=== PATIENT | male | born 1970 | race Two or more races ===

== ENCOUNTER 2019-10-14 21:01 | Inpatient (IN) | payer MEDICAID, OTHER ==
[~2019-10-14] VITALS: Ht 170.2 cm; Wt 65.6 kg
--- NOTE | 2019-10-14 21:55 | NUR ---
PT RESTING IN [facility] AT THIS TIME; NADN. PT ATTACHED TO VS MACHINES. VSS. YVON KAM AT FOR PT HISTORY AND ASSESSMENT.
--- NOTE | 2019-10-14 22:04 | NUR ---
--PT. SISTER NATALIE; CALL IF PT. D/C FOR RIDE HOME.
--- NOTE | 2019-10-14 22:09 | NUR ---
IV ACCESS ESTABLISHED. PT MEDICATED PER MAR AT THIS TIME.
[2019-10-14 22:14] LABS: BASOPHILS # (AUTO) 0.12 x10^3/uL (0-0.1); BASOPHILS % (AUTO) 1 % (0-1); EOSINOPHILS # (AUTO) 0.07 x10^3/uL (0-0.4); EOSINOPHILS % (AUTO) 1 % (1-7); LYMPHOCYTES # (AUTO) 1.34 x10^3/uL (1-3.4); LYMPHOCYTES % (AUTO) 12 % (22-44); MD NO; MEAN CORPUSCULAR HEMOGLOBIN 27.1 pg (27.5-34.5); MEAN CORPUSCULAR HGB CONC 32.7 g/dL (33.2-36.2); MEAN CORPUSCULAR VOLUME 82.9 fL (81-97); MEAN PLATELET VOLUME 9.2 fL (7.4-10.4); MONOCYTES % (AUTO) 10 % (2-9); NEUTROPHILS # (AUTO) 8.94 x10^3/uL (1.8-6.8); NEUTROPHILS % (AUTO) 77 % (42-75); PLATELET COUNT 395 x10^3/uL (130-400); RED BLOOD COUNT 5.56 x10^6/uL (4.38-5.82)
[2019-10-14] MEDS ORDERED: MORPHINE SULFATE 4 MG/ML, 1ML ONE (22:20)
[2019-10-14] MEDS ORDERED: ONDANSETRON 2MG/ML, 2ML ONE (22:20)
[2019-10-14 22:28] LABS: ALANINE AMINOTRANSFERASE 30 U/L (12-78); ALBUMIN 3.1 g/dL (3.4-5.0); ANION GAP 10 mmol/L (5-15); CALCIUM 8.9 mg/dL (8.5-10.1); CHLORIDE 98 mmol/L (98-107); CREATININE 0.75 mg/dL (0.7-1.3)
--- NOTE | 2019-10-14 22:28 | NUR ---
PT MEDICATED PER MAR.
[2019-10-14 22:30] LABS: ALKALINE PHOSPHATASE 150 U/L (45-117); BILIRUBIN,TOTAL 0.4 mg/dL (0.2-1.0); TOTAL PROTEIN 7.2 g/dL (6.4-8.2)
[2019-10-14] MEDS ORDERED: ONDANSETRON 2MG/ML, 2ML IVPush ONE (22:30)
[2019-10-14] MEDS ORDERED: MORPHINE SULFATE 4 MG/ML, 1ML IVPush PRN (22:30)
[2019-10-14] MEDS ORDERED: SODIUM CHLORIDE FLUSH 10ML SYR IVF ONE (22:30)
[2019-10-14] MEDS ORDERED: SODIUM CHLORIDE 0.9% 1,000ML IVBOLUS ONE ×2 (22:30→23:30)
--- NOTE | 2019-10-14 23:10 | NUR ---
optical fabrication technicianbalbir Kraft assisted in triage and other procedures
--- NOTE | 2019-10-14 23:25 | NUR ---
PT TO CT VIA [facility] AT THIS TIME.
[2019-10-14 23:39] LABS: MICROSCOPIC AUTO
[2019-10-14 23:44] LABS: INTERNATIONAL NORMALIZED RATIO 1.13 (0.93-1.1)
[2019-10-14 23:46] LABS: T4 (THYROXINE) 10.9 mcg/dL (4.5-12.1)
[2019-10-14 23:48] LABS: CULTURE INDICATED? NO
[2019-10-14] MEDS ORDERED: OMNIPAQUE 350 MG/ML, 100ML BOTTLE ONE (23:51)
[2019-10-14 23:52] LABS: TROPONIN I < 0.015 ng/mL (0.000-0.045)
[2019-10-15] MEDS ORDERED: LIDOCAINE 1%-EPI 1:100K, 20ML ONE (00:02)
--- NOTE | 2019-10-15 01:34 | NUR ---
CONSENT OBTAINED FROM PT WITH INA BAER TO INTERPRET. PT VERBALIZES UNDERSTANDING OF PROCEDURE WITH THIS RN TO WITNESS. DR BROWN AT BS. PT RIGHT THROAX DRAINED OF APPROXIMATELY 3500 ML OF FLUID. REPEAT XRAY TO BE OBTAINED. PT TOLERATED PROCEDURE WELL AND VERBALIZES ABILITY TO BREATHE EASIER. VSS AT THIS TIME.
--- NOTE | 2019-10-15 01:42 | NUR ---
RECEIVED REPORT FROM GIDEON HIRSCH TO ASSUME CARE OF PT. AT THIS TIME. THORACENTESIS WAS COMPLETED, PER GIDEON HIRSCH 3,500ML OF FLUID WAS REMOVED FROM RIGHT LUNG. PT. RESTING ON GURNEY. ALL MONITORS IN PLACE. ALL SAFETY MEASURES OBSERVED.
--- NOTE | 2019-10-15 01:48 | NUR ---
technical business systems analyst Ezequiel assisted in room with procedure.
--- NOTE | 2019-10-15 02:12 | NUR ---
X-RAY AT FOR REPEAT CHEST X-RAY.
[2019-10-15] MEDS ORDERED: CEFTRIAXONE PMX 1GM/50ML 50 ML IV ONE (03:30)
[2019-10-15] MEDS ORDERED: AZITHROMYCIN 500 MG in SODIUM CHLORIDE 0.9% 250 ML IV ONE (03:30)
[2019-10-15] MEDS ORDERED: CEFTRIAXONE PMX 1GM/50ML 50 ML ONE (03:38)
[2019-10-15] MEDS: CEFTRIAXONE PMX 1GM/50ML 50 ML IVPB SCH (03:43)
--- NOTE | 2019-10-15 03:49 | NUR ---
PT. REPORTS NO PAIN. STATES HE FEELS HE CAN BREATH BETTER AFTER PROCEDURE. 2 SETS OF BLOOD CULTURES WERE DRAWN EARLIER. IV ABX HUNG PER ORDER. DR. HUNTER IN TO EVAL PT. AND DISCUSS POC AT THIS TIME.
[2019-10-15] MEDS ORDERED: DOCUSATE 100 MG CAPSULE PO PRN (04:00)
[2019-10-15] MEDS ORDERED: PHARMACY MAY ADJ FOR RENAL FX MC PRN (04:00)
[2019-10-15] MEDS ORDERED: ONDANSETRON 2MG/ML, 2ML IVPush PRN (04:00)
[2019-10-15] MEDS: AZITHROMYCIN 500 MG in SODIUM CHLORIDE 0.9% 250 ML IV SCH (04:28)
--- NOTE | 2019-10-15 07:07 | NUR ---
REPORT TO GIDEON TAVARES.
--- NOTE | 2019-10-15 07:38 | NUR ---
REPORT RECEIVED FROM GIDEON GUTIERREZ. ASSUMING PRIMARY CARE OF PT.
--- NOTE | 2019-10-15 08:03 | NUR ---
RN OBTAINED AM VS. VSS. PT AWAKE AND ALERT. DENIES ANY PAIN OR DISCOMFORT AT THIS TIME. AWAITING BREAKFAST AND BED ASSIGNMENT. RN TO CONTINUE TO MONITOR.
--- NOTE | 2019-10-15 08:04 | NUR ---
BREAKFAST DELIVERED TO PT.
--- NOTE | 2019-10-15 09:46 | NUR ---
PT MOVED TO HOSPITAL BED.
--- NOTE | 2019-10-15 12:13 | NUR ---
LUNCH DELIVERED TO PT. PT ON PHONE TALKING TO FAMILY MEMBERS WITH [facility]. NO NEEDS AT THIS TIME. RN TO CONTINUE TO MONITOR. REPORT TO BREAK GIDEON TORO.
--- NOTE | 2019-10-15 14:11 | NUR ---
PT LYING QUITELY ON HOSPITAL BED. DENIES ANY PAIN OR DISCOMFORT AT THIS TIME. VSS. RN TO CONTINUE TO MONITOR.
--- NOTE | 2019-10-15 17:09 | NUR ---
DINNER DELIVERED TO PT.
--- NOTE | 2019-10-15 17:43 | NUR ---
RN INFORMED MD BONILLA THAT PT'S COVID TEST WAS NOT DETECTED.
--- NOTE | 2019-10-15 17:57 | NUR ---
FIRST ATTEMPT ON GOING RECEIVING RN REPORT.
--- NOTE | 2019-10-15 18:18 | NUR ---
REPORT TO GIDEON HDEZ.
[2019-10-15 20:40] VITALS: BP 130/90
[2019-10-16 00:27] VITALS: BP 121/79
[2019-10-16] MEDS: CEFTRIAXONE PMX 1GM/50ML 50 ML IVPB SCH (03:47)
[2019-10-16] MEDS: AZITHROMYCIN 500 MG in SODIUM CHLORIDE 0.9% 250 ML IV SCH (04:24)
[2019-10-16 05:33] LABS: BASOPHILS # (AUTO) 0.02 x10^3/uL (0-0.1); BASOPHILS % (AUTO) 0 % (0-1); EOSINOPHILS # (AUTO) 0.11 x10^3/uL (0-0.4); EOSINOPHILS % (AUTO) 1 % (1-7); LYMPHOCYTES # (AUTO) 0.83 x10^3/uL (1-3.4); LYMPHOCYTES % (AUTO) 9 % (22-44); MD NO; MEAN CORPUSCULAR HEMOGLOBIN 27.4 pg (27.5-34.5); MEAN CORPUSCULAR HGB CONC 32.6 g/dL (33.2-36.2); MEAN PLATELET VOLUME 9.7 fL (7.4-10.4); MONOCYTES # (AUTO) 0.82 x10^3/uL (0.2-0.8); MONOCYTES % (AUTO) 9 % (2-9); NEUTROPHILS # (AUTO) 7.48 x10^3/uL (1.8-6.8); NEUTROPHILS % (AUTO) 81 % (42-75); PLATELET COUNT 273 x10^3/uL (130-400); RED BLOOD COUNT 5.01 x10^6/uL (4.38-5.82); RED CELL DISTRIBUTION WIDTH 12.8 % (9.4-14.8)
[2019-10-16 05:34] LABS: ANION GAP 7 mmol/L (5-15); CALCIUM 8.1 mg/dL (8.5-10.1); CHLORIDE 106 mmol/L (98-107)
[2019-10-16 05:37] LABS: CREATININE 0.51 mg/dL (0.7-1.3)
[2019-10-16 07:25] VITALS: BP 112/69
[2019-10-16] MEDS: DOXYCYCLINE 100MG TABLET PO SCH ×2 (09:23→21:25)
[2019-10-16] MEDS: ENOXAPARIN 40 MG/0.4 ML SQ SCH (09:23)
[2019-10-16 15:55] VITALS: BP 155/83
[2019-10-16 19:34] VITALS: BP 125/78
[2019-10-17 00:01] VITALS: BP 122/72
[2019-10-17 04:00] VITALS: BP 123/87
[2019-10-17] MEDS: CEFTRIAXONE PMX 1GM/50ML 50 ML IVPB SCH (04:42)
[2019-10-17 06:27] LABS: BASOPHILS # (AUTO) 0.02 x10^3/uL (0-0.1); BASOPHILS % (AUTO) 0 % (0-1); EOSINOPHILS # (AUTO) 0.12 x10^3/uL (0-0.4); EOSINOPHILS % (AUTO) 1 % (1-7); LYMPHOCYTES # (AUTO) 0.83 x10^3/uL (1-3.4); LYMPHOCYTES % (AUTO) 9 % (22-44); MD NO; MEAN CORPUSCULAR HEMOGLOBIN 27.5 pg (27.5-34.5); MEAN CORPUSCULAR HGB CONC 32.7 g/dL (33.2-36.2); MEAN CORPUSCULAR VOLUME 84.2 fL (81-97); MEAN PLATELET VOLUME 9.9 fL (7.4-10.4); MONOCYTES # (AUTO) 0.81 x10^3/uL (0.2-0.8); MONOCYTES % (AUTO) 9 % (2-9); NEUTROPHILS # (AUTO) 7.56 x10^3/uL (1.8-6.8); NEUTROPHILS % (AUTO) 81 % (42-75); PLATELET COUNT 269 x10^3/uL (130-400); RED BLOOD COUNT 4.73 x10^6/uL (4.38-5.82); RED CELL DISTRIBUTION WIDTH 13.1 % (9.4-14.8)
[2019-10-17 06:32] LABS: ALANINE AMINOTRANSFERASE 19 U/L (12-78); ALBUMIN 2.1 g/dL (3.4-5.0); ANION GAP 4 mmol/L (5-15); CALCIUM 8.4 mg/dL (8.5-10.1); CHLORIDE 104 mmol/L (98-107); CREATININE 0.51 mg/dL (0.7-1.3)
[2019-10-17 06:35] LABS: ALKALINE PHOSPHATASE 113 U/L (45-117); BILIRUBIN,TOTAL 0.3 mg/dL (0.2-1.0); TOTAL PROTEIN 5.7 g/dL (6.4-8.2)
[2019-10-17] MEDS: DOXYCYCLINE 100MG TABLET PO SCH ×2 (07:52→21:06)
[2019-10-17] MEDS: ENOXAPARIN 40 MG/0.4 ML SQ SCH (07:52)
[2019-10-17 08:00] VITALS: BP 134/87
[2019-10-17 15:07] VITALS: BP 126/78
[2019-10-17 18:49] VITALS: BP 144/90
[2019-10-18 01:40] VITALS: BP 134/82
[2019-10-18 03:50] VITALS: BP 136/71
[2019-10-18] MEDS: CEFTRIAXONE PMX 1GM/50ML 50 ML IVPB SCH (04:02)
[2019-10-18] MEDS: ACETAMINOPHEN 325 MG TABLET PO PRN ×2 (05:33→19:33)
[2019-10-18 05:42] LABS: BASOPHILS # (AUTO) 0.03 x10^3/uL (0-0.1); BASOPHILS % (AUTO) 0 % (0-1); EOSINOPHILS % (AUTO) 2 % (1-7); LYMPHOCYTES # (AUTO) 0.84 x10^3/uL (1-3.4); LYMPHOCYTES % (AUTO) 10 % (22-44); MD NO; MEAN CORPUSCULAR HEMOGLOBIN 27.5 pg (27.5-34.5); MEAN CORPUSCULAR HGB CONC 32.9 g/dL (33.2-36.2); MEAN CORPUSCULAR VOLUME 83.5 fL (81-97); MEAN PLATELET VOLUME 9.3 fL (7.4-10.4); MONOCYTES # (AUTO) 0.82 x10^3/uL (0.2-0.8); MONOCYTES % (AUTO) 9 % (2-9); NEUTROPHILS # (AUTO) 6.76 x10^3/uL (1.8-6.8); NEUTROPHILS % (AUTO) 78 % (42-75); PLATELET COUNT 289 x10^3/uL (130-400); RED BLOOD COUNT 4.89 x10^6/uL (4.38-5.82)
[2019-10-18 05:50] LABS: ANION GAP 5 mmol/L (5-15); CALCIUM 8.3 mg/dL (8.5-10.1); CHLORIDE 105 mmol/L (98-107); CREATININE 0.48 mg/dL (0.7-1.3)
[2019-10-18 08:20] VITALS: BP 111/71
[2019-10-18] MEDS: DOXYCYCLINE 100MG TABLET PO SCH ×2 (09:40→20:04)
[2019-10-18] MEDS: ENOXAPARIN 40 MG/0.4 ML SQ SCH (09:40)
[2019-10-18 13:05] VITALS: BP 126/79
[2019-10-18 20:24] VITALS: BP 126/87
[2019-10-19] VITALS (7 sets, daily range): BP systolic 121–133; BP diastolic 73–85
[2019-10-19] MEDS: CEFTRIAXONE PMX 1GM/50ML 50 ML IVPB SCH (04:18)
[2019-10-19 05:09] LABS: BASOPHILS # (AUTO) 0.04 x10^3/uL (0-0.1); BASOPHILS % (AUTO) 1 % (0-1); EOSINOPHILS # (AUTO) 0.17 x10^3/uL (0-0.4); EOSINOPHILS % (AUTO) 2 % (1-7); LYMPHOCYTES # (AUTO) 0.86 x10^3/uL (1-3.4); LYMPHOCYTES % (AUTO) 11 % (22-44); MD NO; MEAN CORPUSCULAR HEMOGLOBIN 27.1 pg (27.5-34.5); MEAN CORPUSCULAR HGB CONC 32.2 g/dL (33.2-36.2); MEAN PLATELET VOLUME 8.8 fL (7.4-10.4); MONOCYTES # (AUTO) 0.75 x10^3/uL (0.2-0.8); MONOCYTES % (AUTO) 10 % (2-9); NEUTROPHILS # (AUTO) 5.72 x10^3/uL (1.8-6.8); NEUTROPHILS % (AUTO) 76 % (42-75); PLATELET COUNT 338 x10^3/uL (130-400); RED BLOOD COUNT 5.08 x10^6/uL (4.38-5.82); RED CELL DISTRIBUTION WIDTH 12.8 % (9.4-14.8)
[2019-10-19 05:12] LABS: ANION GAP 9 mmol/L (5-15); CALCIUM 8.5 mg/dL (8.5-10.1); CHLORIDE 104 mmol/L (98-107)
[2019-10-19 05:14] LABS: CREATININE 0.47 mg/dL (0.7-1.3)
[2019-10-19] MEDS: ENOXAPARIN 40 MG/0.4 ML SQ SCH (09:00)
[2019-10-19] MEDS: DOXYCYCLINE 100MG TABLET PO SCH ×2 (09:18→20:19)
[2019-10-19] MEDS ORDERED: LIDOCAINE 1%, 10ML ONE (09:40)
[2019-10-19] MEDS: morphine SULFATE 10 MG/ML, 1ML IVPush PRN ×2 (13:39→17:11)
[2019-10-20 02:50] VITALS: BP 105/66
[2019-10-20] MEDS: CEFTRIAXONE PMX 1GM/50ML 50 ML IVPB SCH (03:40)
[2019-10-20] MEDS: morphine SULFATE 10 MG/ML, 1ML IVPush PRN (05:13)
[2019-10-20 05:31] LABS: BASOPHILS # (AUTO) 0.02 x10^3/uL (0-0.1); BASOPHILS % (AUTO) 0 % (0-1); EOSINOPHILS # (AUTO) 0.12 x10^3/uL (0-0.4); EOSINOPHILS % (AUTO) 2 % (1-7); LYMPHOCYTES % (AUTO) 14 % (22-44); MD NO; MEAN CORPUSCULAR HEMOGLOBIN 27.2 pg (27.5-34.5); MEAN CORPUSCULAR HGB CONC 32.3 g/dL (33.2-36.2); MEAN CORPUSCULAR VOLUME 84.3 fL (81-97); MEAN PLATELET VOLUME 8.9 fL (7.4-10.4); MONOCYTES # (AUTO) 0.69 x10^3/uL (0.2-0.8); MONOCYTES % (AUTO) 10 % (2-9); NEUTROPHILS # (AUTO) 5.24 x10^3/uL (1.8-6.8); NEUTROPHILS % (AUTO) 74 % (42-75); PLATELET COUNT 339 x10^3/uL (130-400); RED BLOOD COUNT 4.98 x10^6/uL (4.38-5.82); RED CELL DISTRIBUTION WIDTH 12.9 % (9.4-14.8)
[2019-10-20 05:43] LABS: ANION GAP 8 mmol/L (5-15); CALCIUM 8.6 mg/dL (8.5-10.1); CHLORIDE 103 mmol/L (98-107); CREATININE 0.51 mg/dL (0.7-1.3)
[2019-10-20 06:28] VITALS: BP 116/76
[2019-10-20] MEDS: DOXYCYCLINE 100MG TABLET PO SCH ×2 (10:12→21:49)
[2019-10-20] MEDS: ENOXAPARIN 40 MG/0.4 ML SQ SCH (10:12)
[2019-10-20] MEDS: ACETAMINOPHEN 325 MG TABLET PO PRN ×3 (10:13→21:49)
[2019-10-20 14:19] VITALS: BP 126/79
[2019-10-20 19:20] VITALS: BP 118/78
[2019-10-21] MEDS: morphine SULFATE 10 MG/ML, 1ML IVPush PRN (01:15)
[2019-10-21 01:27] VITALS: BP 117/81
[2019-10-21] MEDS: CEFTRIAXONE PMX 1GM/50ML 50 ML IVPB SCH (03:56)
[2019-10-21 05:08] LABS: BASOPHILS # (AUTO) 0.03 x10^3/uL (0-0.1); BASOPHILS % (AUTO) 0 % (0-1); EOSINOPHILS # (AUTO) 0.18 x10^3/uL (0-0.4); EOSINOPHILS % (AUTO) 3 % (1-7); LYMPHOCYTES # (AUTO) 0.89 x10^3/uL (1-3.4); LYMPHOCYTES % (AUTO) 13 % (22-44); MD NO; MEAN CORPUSCULAR HEMOGLOBIN 27.2 pg (27.5-34.5); MEAN CORPUSCULAR HGB CONC 32.4 g/dL (33.2-36.2); MEAN CORPUSCULAR VOLUME 83.9 fL (81-97); MEAN PLATELET VOLUME 8.6 fL (7.4-10.4); MONOCYTES # (AUTO) 0.75 x10^3/uL (0.2-0.8); MONOCYTES % (AUTO) 11 % (2-9); NEUTROPHILS # (AUTO) 4.98 x10^3/uL (1.8-6.8); NEUTROPHILS % (AUTO) 73 % (42-75); PLATELET COUNT 335 x10^3/uL (130-400); RED BLOOD COUNT 4.93 x10^6/uL (4.38-5.82); RED CELL DISTRIBUTION WIDTH 13.2 % (9.4-14.8)
[2019-10-21 05:15] LABS: ANION GAP 7 mmol/L (5-15); CALCIUM 8.5 mg/dL (8.5-10.1); CHLORIDE 100 mmol/L (98-107); CREATININE 0.66 mg/dL (0.7-1.3)
[2019-10-21 07:06] VITALS: BP 125/84
[2019-10-21] MEDS: DOXYCYCLINE 100MG TABLET PO SCH ×2 (09:07→20:46)
[2019-10-21] MEDS: ENOXAPARIN 40 MG/0.4 ML SQ SCH (09:07)
[2019-10-21 12:36] VITALS: BP 126/86
[2019-10-21 18:48] VITALS: BP 126/84
[2019-10-22 00:25] VITALS: BP 121/84
[2019-10-22] MEDS: CEFTRIAXONE PMX 1GM/50ML 50 ML IVPB SCH (03:34)
[2019-10-22 05:52] LABS: BASOPHILS # (AUTO) 0.02 x10^3/uL (0-0.1); BASOPHILS % (AUTO) 0 % (0-1); EOSINOPHILS # (AUTO) 0.11 x10^3/uL (0-0.4); EOSINOPHILS % (AUTO) 1 % (1-7); LYMPHOCYTES # (AUTO) 1.15 x10^3/uL (1-3.4); LYMPHOCYTES % (AUTO) 14 % (22-44); MD NO; MEAN CORPUSCULAR HEMOGLOBIN 27.3 pg (27.5-34.5); MEAN CORPUSCULAR HGB CONC 32.9 g/dL (33.2-36.2); MEAN CORPUSCULAR VOLUME 83.1 fL (81-97); MEAN PLATELET VOLUME 8.9 fL (7.4-10.4); MONOCYTES # (AUTO) 0.86 x10^3/uL (0.2-0.8); MONOCYTES % (AUTO) 10 % (2-9); NEUTROPHILS # (AUTO) 6.25 x10^3/uL (1.8-6.8); NEUTROPHILS % (AUTO) 75 % (42-75); PLATELET COUNT 419 x10^3/uL (130-400); RED BLOOD COUNT 5.35 x10^6/uL (4.38-5.82); RED CELL DISTRIBUTION WIDTH 12.6 % (9.4-14.8)
[2019-10-22 05:59] LABS: CHLORIDE 100 mmol/L (98-107)
[2019-10-22 06:05] LABS: ALANINE AMINOTRANSFERASE 72 U/L (12-78); ALBUMIN 2.6 g/dL (3.4-5.0); ALKALINE PHOSPHATASE 241 U/L (45-117); ANION GAP 8 mmol/L (5-15); BILIRUBIN,TOTAL 0.3 mg/dL (0.2-1.0); CALCIUM 8.8 mg/dL (8.5-10.1); CREATININE 0.72 mg/dL (0.7-1.3); TOTAL PROTEIN 6.9 g/dL (6.4-8.2)
[2019-10-22 07:20] VITALS: BP 126/73
[2019-10-22] MEDS: ENOXAPARIN 40 MG/0.4 ML SQ SCH (07:22)
[2019-10-22] MEDS: DOXYCYCLINE 100MG TABLET PO SCH ×2 (08:09→22:04)
[2019-10-22] MEDS ORDERED: CHLORHEXIDINE 15 ML UDC MM STA (09:49)
[2019-10-22] MEDS ORDERED: CHLORHEXIDINE 15 ML UDC ONE (09:50)
[2019-10-22] MEDS ORDERED: BUPIVACAINE/PF-EPI 0.5% 1:200K ONE (10:17)
[2019-10-22] MEDS ORDERED: PHENYLEPHRINE 10 MG/ML ONE (10:29)
[2019-10-22] MEDS ORDERED: MIDAZOLAM 1 MG/ML, 2ML ONE (10:30)
[2019-10-22] MEDS ORDERED: FENTANYL PF 250 MCG/5ML ONE (10:31)
[2019-10-22] MEDS ORDERED: SUGAMMADEX 200 MG/2 ML IVPush ONE (11:23)
[2019-10-22] MEDS ORDERED: PROPOFOL 10 MG/ML, 20ML ONE (11:24)
[2019-10-22] MEDS ORDERED: ROCURONIUM 10MG/ML,5ML ONE (11:24)
[2019-10-22] MEDS ORDERED: DEXAMETHASONE 4 MG/ML, 1ML ONE (11:24)
[2019-10-22] MEDS ORDERED: NEOSTIGMINE 1 MG/ML, 10ML ONE (11:24)
[2019-10-22] MEDS ORDERED: GLYCOPYRROLATE 0.2MG/1ML, 5ML ONE (11:24)
[2019-10-22] MEDS ORDERED: ONDANSETRON 2MG/ML, 2ML ONE (11:24)
[2019-10-22] MEDS ORDERED: SUCCINYLCHOLINE 20 MG/ML, 10ML ONE (11:24)
[2019-10-22] MEDS ORDERED: CEFAZOLIN 1,000 MG ONE (11:24)
[2019-10-22] MEDS ORDERED: PROMETHAZINE 25 MG SUPP PR PRN (11:30)
[2019-10-22] MEDS ORDERED: ACETAMINOPHEN 325 MG TABLET PO PRN (11:30)
[2019-10-22] MEDS ORDERED: PROMETHAZINE 25 MG/ML, 1ML IV PRN (11:30)
[2019-10-22] MEDS ORDERED: hydrALAzine 20 MG/ML, 1ML IV PRN (11:30)
[2019-10-22] MEDS ORDERED: HYDROmorphone 1 MG/ML, 1ML INJ IVPush PRN (11:30)
[2019-10-22] MEDS ORDERED: ONDANSETRON ODT 8 MG PO PRN (11:30)
[2019-10-22] MEDS ORDERED: LORazepam 2 MG/ML, 1ML IVPush PRN (11:30)
[2019-10-22] MEDS ORDERED: OXYcodone 5 MG/5 ML ORAL.SOL UDC PO PRN (11:30)
[2019-10-22] MEDS ORDERED: FENTANYL PF 100 MCG/2ML IV PRN (11:30)
[2019-10-22] MEDS ORDERED: ONDANSETRON 2MG/ML, 2ML IV PRN (11:30)
[2019-10-22] MEDS ORDERED: LABETALOL 5MG/ML, 20ML IV PRN (11:30)
[2019-10-22] MEDS: morphine SULFATE 10 MG/ML, 1ML IVPush PRN (13:10)
[2019-10-22 13:35] VITALS: BP 109/70
[2019-10-22] MEDS: HYDROcodone/APAP 5/325 TABLET PO PRN (16:17)
[2019-10-22 20:18] VITALS: BP 123/88
[2019-10-23 00:18] VITALS: BP 112/80
[2019-10-23] MEDS: HYDROcodone/APAP 5/325 TABLET PO PRN ×3 (01:35→18:40)
[2019-10-23 03:38] VITALS: BP 117/83
[2019-10-23] MEDS: CEFTRIAXONE PMX 1GM/50ML 50 ML IVPB SCH (03:51)
[2019-10-23 06:54] VITALS: BP 110/73
[2019-10-23 06:56] VITALS: BP 127/83
[2019-10-23] MEDS: ENOXAPARIN 40 MG/0.4 ML SQ SCH (09:32)
[2019-10-23] MEDS: DOXYCYCLINE 100MG TABLET PO SCH ×2 (09:33→20:39)
[2019-10-23 13:50] VITALS: BP 123/83
[2019-10-23 18:19] VITALS: BP 116/73
[2019-10-24 02:22] VITALS: BP 121/74
[2019-10-24] MEDS: CEFTRIAXONE PMX 1GM/50ML 50 ML IVPB SCH (03:47)
[2019-10-24 06:47] VITALS: BP 125/80
[2019-10-24] MEDS: ENOXAPARIN 40 MG/0.4 ML SQ SCH (08:09)
[2019-10-24] MEDS: DOXYCYCLINE 100MG TABLET PO SCH ×2 (08:09→21:24)
[2019-10-24] MEDS: HYDROcodone/APAP 5/325 TABLET PO PRN ×3 (08:10→18:33)
[2019-10-24 14:00] VITALS: BP 132/72
[2019-10-24 20:33] VITALS: BP 127/72
[2019-10-25] MEDS: HYDROcodone/APAP 5/325 TABLET PO PRN ×2 (00:58→18:17)
[2019-10-25 01:54] VITALS: BP 129/72
[2019-10-25] MEDS: CEFTRIAXONE PMX 1GM/50ML 50 ML IVPB SCH (04:23)
[2019-10-25 06:33] VITALS: BP 127/81
[2019-10-25] MEDS: ENOXAPARIN 40 MG/0.4 ML SQ SCH (09:31)
[2019-10-25] MEDS: DOXYCYCLINE 100MG TABLET PO SCH ×2 (09:31→20:48)
[2019-10-25 13:15] VITALS: BP 130/83
[2019-10-25 19:48] VITALS: BP 118/81
[2019-10-26 00:42] VITALS: BP 122/79
[2019-10-26] MEDS: HYDROcodone/APAP 5/325 TABLET PO PRN ×2 (01:45→08:56)
[2019-10-26] MEDS: CEFTRIAXONE PMX 1GM/50ML 50 ML IVPB SCH (03:50)
[2019-10-26 05:51] LABS: CREATININE 0.45 mg/dL (0.7-1.3)
[2019-10-26 06:42] VITALS: BP 121/84
[2019-10-26] MEDS: DOXYCYCLINE 100MG TABLET PO SCH ×2 (08:55→21:16)
[2019-10-26] MEDS: ENOXAPARIN 40 MG/0.4 ML SQ SCH (08:56)
[2019-10-26] MEDS: ACETAMINOPHEN 325 MG TABLET PO PRN ×3 (12:57→21:16)
[2019-10-26 13:15] VITALS: BP 98/69
[2019-10-26 19:17] VITALS: BP 113/73
[2019-10-27 00:53] VITALS: BP 139/85
[2019-10-27] MEDS: HYDROcodone/APAP 5/325 TABLET PO PRN ×3 (02:35→21:33)
[2019-10-27] MEDS: CEFTRIAXONE PMX 1GM/50ML 50 ML IVPB SCH (04:18)
[2019-10-27 09:01] VITALS: BP 121/80
[2019-10-27] MEDS: ENOXAPARIN 40 MG/0.4 ML SQ SCH (09:13)
[2019-10-27] MEDS: DOXYCYCLINE 100MG TABLET PO SCH (09:13)
[2019-10-27] MEDS ORDERED: BISACODYL 10 MG SUPP PR PRN (13:30)
[2019-10-27] MEDS: DOCUSATE 100 MG CAPSULE PO SCH ×2 (14:06→21:33)
[2019-10-27] MEDS: ACETAMINOPHEN 325 MG TABLET PO PRN (14:07)
[2019-10-27 15:16] VITALS: BP 109/73
[2019-10-27 20:10] VITALS: BP 113/76
[2019-10-28] MEDS: HYDROcodone/APAP 5/325 TABLET PO PRN ×2 (02:37→19:12)
[2019-10-28 02:49] VITALS: BP 101/68
[2019-10-28 05:14] LABS: ALANINE AMINOTRANSFERASE 45 U/L (12-78); ALBUMIN 2.1 g/dL (3.4-5.0); ANION GAP 8 mmol/L (5-15); CALCIUM 8.6 mg/dL (8.5-10.1); CHLORIDE 99 mmol/L (98-107)
[2019-10-28 05:17] LABS: ALKALINE PHOSPHATASE 314 U/L (45-117); BILIRUBIN,TOTAL 0.5 mg/dL (0.2-1.0); CREATININE 0.57 mg/dL (0.7-1.3); TOTAL PROTEIN 6.4 g/dL (6.4-8.2)
[2019-10-28 05:32] LABS: BASOPHILS # (AUTO) 0.01 x10^3/uL (0-0.1); BASOPHILS % (AUTO) 0 % (0-1); EOSINOPHILS # (AUTO) 0.07 x10^3/uL (0-0.4); EOSINOPHILS % (AUTO) 1 % (1-7); LYMPHOCYTES # (AUTO) 0.72 x10^3/uL (1-3.4); LYMPHOCYTES % (AUTO) 8 % (22-44); MD NO; MEAN CORPUSCULAR HEMOGLOBIN 26.9 pg (27.5-34.5); MEAN CORPUSCULAR HGB CONC 32.5 g/dL (33.2-36.2); MEAN CORPUSCULAR VOLUME 82.7 fL (81-97); MEAN PLATELET VOLUME 8.3 fL (7.4-10.4); MONOCYTES # (AUTO) 0.76 x10^3/uL (0.2-0.8); MONOCYTES % (AUTO) 9 % (2-9); NEUTROPHILS # (AUTO) 7.26 x10^3/uL (1.8-6.8); NEUTROPHILS % (AUTO) 82 % (42-75); PLATELET COUNT 405 x10^3/uL (130-400); RED BLOOD COUNT 4.48 x10^6/uL (4.38-5.82); RED CELL DISTRIBUTION WIDTH 13.1 % (9.4-14.8)
[2019-10-28] MEDS ORDERED: TALC INTRAPL SCH (08:00)
[2019-10-28] MEDS ORDERED: SODIUM CHLORIDE 0.9% INTRAPL SCH (08:00)
[2019-10-28] MEDS: POLYETHYLENE GLYCOL 17 GM PACKET PO SCH ×2 (08:28→08:32)
[2019-10-28] MEDS: DOCUSATE 100 MG CAPSULE PO SCH ×3 (08:28→21:47)
[2019-10-28] MEDS: ENOXAPARIN 40 MG/0.4 ML SQ SCH (08:28)
[2019-10-28 08:59] VITALS: BP 112/77
[2019-10-28 13:35] VITALS: BP 117/82
[2019-10-28 20:15] VITALS: BP 112/79
[2019-10-29] MEDS: HYDROcodone/APAP 5/325 TABLET PO PRN ×3 (01:34→21:08)
[2019-10-29 01:44] VITALS: BP 111/77
[2019-10-29 05:33] LABS: BASOPHILS # (AUTO) 0.02 x10^3/uL (0-0.1); BASOPHILS % (AUTO) 0 % (0-1); EOSINOPHILS # (AUTO) 0.02 x10^3/uL (0-0.4); EOSINOPHILS % (AUTO) 0 % (1-7); LYMPHOCYTES # (AUTO) 1.04 x10^3/uL (1-3.4); LYMPHOCYTES % (AUTO) 12 % (22-44); MD NO; MEAN CORPUSCULAR HEMOGLOBIN 27.1 pg (27.5-34.5); MEAN CORPUSCULAR HGB CONC 32.5 g/dL (33.2-36.2); MEAN CORPUSCULAR VOLUME 83.5 fL (81-97); MEAN PLATELET VOLUME 8.3 fL (7.4-10.4); MONOCYTES # (AUTO) 0.86 x10^3/uL (0.2-0.8); MONOCYTES % (AUTO) 10 % (2-9); NEUTROPHILS # (AUTO) 6.93 x10^3/uL (1.8-6.8); NEUTROPHILS % (AUTO) 78 % (42-75); PLATELET COUNT 451 x10^3/uL (130-400); RED BLOOD COUNT 4.57 x10^6/uL (4.38-5.82); RED CELL DISTRIBUTION WIDTH 13.2 % (9.4-14.8)
[2019-10-29 05:37] LABS: ANION GAP 7 mmol/L (5-15); CALCIUM 8.7 mg/dL (8.5-10.1); CHLORIDE 99 mmol/L (98-107); CREATININE 0.69 mg/dL (0.7-1.3)
[2019-10-29 06:58] VITALS: BP 122/84
[2019-10-29] MEDS: DOCUSATE 100 MG CAPSULE PO SCH ×2 (08:21→21:08)
[2019-10-29] MEDS: POLYETHYLENE GLYCOL 17 GM PACKET PO SCH (08:22)
[2019-10-29] MEDS: ENOXAPARIN 40 MG/0.4 ML SQ SCH (08:22)
[2019-10-29] MEDS ORDERED: GADOTERATE 7.5 MMOL/15 ML SYR ONE (09:43)
[2019-10-29 14:12] VITALS: BP 120/84
[2019-10-29 18:59] VITALS: BP 115/76
[2019-10-30 01:29] VITALS: BP 120/87
[2019-10-30] MEDS: HYDROcodone/APAP 5/325 TABLET PO PRN ×2 (04:33→19:49)
[2019-10-30 04:50] LABS: MEAN CORPUSCULAR HEMOGLOBIN 26.6 pg (27.5-34.5); MEAN CORPUSCULAR HGB CONC 32.3 g/dL (33.2-36.2); MEAN CORPUSCULAR VOLUME 82.4 fL (81-97); MEAN PLATELET VOLUME 8.1 fL (7.4-10.4); PLATELET COUNT 498 x10^3/uL (130-400); RED BLOOD COUNT 4.79 x10^6/uL (4.38-5.82); RED CELL DISTRIBUTION WIDTH 13.4 % (9.4-14.8)
[2019-10-30 04:54] LABS: ANION GAP 7 mmol/L (5-15); CALCIUM 8.7 mg/dL (8.5-10.1); CHLORIDE 98 mmol/L (98-107)
[2019-10-30 05:50] LABS: BASOPHILS # (AUTO) 0.04 x10^3/uL (0-0.1); BASOPHILS % (AUTO) 0 % (0-1); EOSINOPHILS # (AUTO) 0.03 x10^3/uL (0-0.4); EOSINOPHILS % (AUTO) 0 % (1-7); LYMPHOCYTES # (AUTO) 1.02 x10^3/uL (1-3.4); LYMPHOCYTES % (AUTO) 11 % (22-44); MD SCAN; MONOCYTES # (AUTO) 0.82 x10^3/uL (0.2-0.8); MONOCYTES % (AUTO) 9 % (2-9); NEUTROPHILS # (AUTO) 7.47 x10^3/uL (1.8-6.8); NEUTROPHILS % (AUTO) 80 % (42-75)
[2019-10-30 07:09] VITALS: BP 120/78
[2019-10-30] MEDS: POLYETHYLENE GLYCOL 17 GM PACKET PO SCH (08:17)
[2019-10-30] MEDS: ENOXAPARIN 40 MG/0.4 ML SQ SCH (08:18)
[2019-10-30] MEDS: DOCUSATE 100 MG CAPSULE PO SCH ×2 (08:18→19:48)
[2019-10-30] MEDS: ACETAMINOPHEN 325 MG TABLET PO PRN (13:47)
[2019-10-30 14:28] VITALS: BP 101/71
[2019-10-30 18:06] VITALS: BP 118/76
[2019-10-31 01:04] VITALS: BP 121/76
[2019-10-31] MEDS: ACETAMINOPHEN 325 MG TABLET PO PRN ×2 (05:06→14:49)
[2019-10-31 05:58] LABS: BASOPHILS # (AUTO) 0.02 x10^3/uL (0-0.1); BASOPHILS % (AUTO) 0 % (0-1); EOSINOPHILS # (AUTO) 0.05 x10^3/uL (0-0.4); EOSINOPHILS % (AUTO) 1 % (1-7); LYMPHOCYTES % (AUTO) 10 % (22-44); MD NO; MEAN CORPUSCULAR HEMOGLOBIN 27.1 pg (27.5-34.5); MEAN CORPUSCULAR HGB CONC 32.5 g/dL (33.2-36.2); MEAN CORPUSCULAR VOLUME 83.4 fL (81-97); MEAN PLATELET VOLUME 8.1 fL (7.4-10.4); MONOCYTES # (AUTO) 0.79 x10^3/uL (0.2-0.8); MONOCYTES % (AUTO) 8 % (2-9); NEUTROPHILS # (AUTO) 7.61 x10^3/uL (1.8-6.8); NEUTROPHILS % (AUTO) 81 % (42-75); PLATELET COUNT 437 x10^3/uL (130-400); RED BLOOD COUNT 4.65 x10^6/uL (4.38-5.82); RED CELL DISTRIBUTION WIDTH 13.2 % (9.4-14.8)
[2019-10-31 06:05] LABS: ANION GAP 7 mmol/L (5-15); CALCIUM 8.9 mg/dL (8.5-10.1); CHLORIDE 100 mmol/L (98-107)
[2019-10-31 06:07] LABS: CREATININE 0.59 mg/dL (0.7-1.3)
[2019-10-31 07:32] VITALS: BP 113/79
[2019-10-31] MEDS: HYDROcodone/APAP 5/325 TABLET PO PRN (09:25)
[2019-10-31] MEDS: POLYETHYLENE GLYCOL 17 GM PACKET PO SCH (09:26)
[2019-10-31] MEDS: DOCUSATE 100 MG CAPSULE PO SCH (09:26)
[2019-10-31] MEDS: ENOXAPARIN 40 MG/0.4 ML SQ SCH (09:26)
[2019-10-31] MEDS ORDERED: ACET325T26 PO (12:07)
[2019-10-31 12:47] VITALS: BP 119/85
[2019-10-31] MEDS ORDERED: HYDR-3240 PO (13:44)
== END 2019-10-31 14:54 | disposition home or self-care (01) | DRG 121 ==
LOC: ED 22:44 → EDIP 10-15 01:40 → 5SO 10-15 19:18 → 3N 10-16 08:07 → 4NE 10-19 21:47 → 3WST 10-30 17:47
PROVIDERS: ATTEND Internal Medicine
PROC: 0W9930Z Drainage of Right Pleural Cavity with Drainage Device, Percutaneous Approach (ICD-10-PCS; principal; 2019-10-19)
PROC: BB4BZZZ Ultrasonography of Pleura (ICD-10-PCS; 2019-10-19)
PROC: 0BBN4ZX Excision of Right Pleura, Percutaneous Endoscopic Approach, Diagnostic (ICD-10-PCS; 2019-10-22)
PROC: 0BCN4ZZ Extirpation of Matter from Right Pleura, Percutaneous Endoscopic Approach (ICD-10-PCS; 2019-10-22)
PROC: 0W9940Z Drainage of Right Pleural Cavity with Drainage Device, Percutaneous Endoscopic Approach (ICD-10-PCS; 2019-10-22)
PROC: 3E0L3GC Introduction of Other Therapeutic Substance into Pleural Cavity, Percutaneous Approach (ICD-10-PCS; 2019-10-28)
DX: C34.90 Malignant neoplasm of unspecified part of unspecified bronchus or lung (principal); J96.01 Acute respiratory failure with hypoxia; J91.0 Malignant pleural effusion; J92.9 Pleural plaque without asbestos; E87.1 Hypo-osmolality and hyponatremia; D72.829 Elevated white blood cell count, unspecified; R00.0 Tachycardia, unspecified; Z20.828 Contact with and (suspected) exposure to other viral communicable diseases; R73.9 Hyperglycemia, unspecified; J98.11 Atelectasis; Z83.3 Family history of diabetes mellitus; Z87.01 Personal history of pneumonia (recurrent)
CPT/HCPCS: 32551; 32555; 32557; 36415; 70553; 71045; 71250; 71275; 74177; 76536; 76700; 80048; 80053; 81001; 82150; 82565; 82945; 83036; 83615; 83690; 83735; 83880; 83986; 84100; 84157; 84436; 84443; 84484; 85025; 85610; 85730; 87015; 87040; 87070; 87075; 87102; 87116; 87205; 87206; 88112; 88305; 88312; 88313; 88341; 88342; 89051; 93005; 96374; 96375; C1729; G0378; J0456; J0690; J0696; J1100; J1650; J2250; J2405; J2704; J2710; J3010; Q9967; A9575; C1769; J0330; J2270; J2370; J7030; J7050; U0001

== ENCOUNTER → 2019-11-06 | Outpatient (CLI) | payer MEDICAID ==
[~2019-11-06] MED LIST: ACET325T26 PO; HYDR-3240 PO
== END | disposition home or self-care (01) ==
LOC: PETCFH 13:46
PROVIDERS: ATTEND Radiology Radiation Oncology
DX: C34.91 Malignant neoplasm of unspecified part of right bronchus or lung (principal); C79.51 Secondary malignant neoplasm of bone; C78.7 Secondary malignant neoplasm of liver and intrahepatic bile duct; J92.9 Pleural plaque without asbestos; R91.8 Other nonspecific abnormal finding of lung field
CPT/HCPCS: 78815; A9552

== ENCOUNTER 2019-11-07 07:56 | Outpatient (CLI) | payer MEDICAID | END 2019-11-07 23:59 | disposition home or self-care (01) | LOC: ROC 07:56 | PROVIDERS: ATTEND Radiology Radiation Oncology | DX: C79.31 Secondary malignant neoplasm of brain (principal); C34.91 Malignant neoplasm of unspecified part of right bronchus or lung; C79.51 Secondary malignant neoplasm of bone; E87.1 Hypo-osmolality and hyponatremia; Z87.01 Personal history of pneumonia (recurrent) | CPT/HCPCS: 99214; G0463 ==

== ENCOUNTER 2019-11-14 12:14 | Outpatient (CLI) | payer MEDICAID ==
[2019-11-14] MEDS ORDERED: GADOTERATE 7.5 MMOL/15 ML SYR ONE (13:09)
== END 2019-11-14 23:59 | disposition home or self-care (01) ==
LOC: CFH 12:14
PROVIDERS: ATTEND Radiology Radiation Oncology
DX: C79.31 Secondary malignant neoplasm of brain (principal)
CPT/HCPCS: 70553; A9575

== ENCOUNTER 2019-12-10 09:22 | Inpatient (IN) | payer MEDICAID ==
[~2019-12-10] VITALS: Ht 154.9 cm; Wt 95.0 kg
[2019-12-10] MEDS ORDERED: HYDROmorphone 1 MG/ML, 1ML INJ ONE ×2 (09:59→10:40)
[2019-12-10] MEDS ORDERED: ONDANSETRON 2MG/ML, 2ML ONE (09:59)
[2019-12-10] MEDS ORDERED: SODIUM CHLORIDE FLUSH 10ML SYR IVF ONE (10:00)
[2019-12-10] MEDS ORDERED: HYDROmorphone 1 MG/ML, 1ML INJ IV ONE (10:00)
[2019-12-10] MEDS ORDERED: SODIUM CHLORIDE 0.9% 1,000ML IVBOLUS ONE (10:00)
[2019-12-10] MEDS ORDERED: ONDANSETRON 2MG/ML, 2ML IVPush ONE (10:00)
--- NOTE | 2019-12-10 10:10 | NUR ---
THIS IS A 49 YEAR OLD LATVIAN SPEAKING MALE WHO IS ACCOMPANIED BY SISTER WHO C/O OF SEVERE RIGHT UPPER CHEST PAIN RADIATES TO RIGHT UPPER BACK X 5 DAYS. PAIN MEDICATIONS (MORPHINE AND NORCO) NOT HELPING. 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 PT RESTLESS AND APPEARS IN PAIN, JAUNDICE WITH UPPER RIGHT SIDED SWELLING. PT PLACED ON FISH ROE TECHNICIAN, SINUS TACHY, CONTINOUS SP02 RA AT 95%. AND CYCLE VS. MEDICATED PER ORDERS PAIN DECREASED 5/10 AT THIS TIME.
[2019-12-10 10:22] LABS: MEAN CORPUSCULAR HEMOGLOBIN 24.8 pg (27.5-34.5); MEAN CORPUSCULAR HGB CONC 32.6 g/dL (33.2-36.2); MEAN CORPUSCULAR VOLUME 76.2 fL (81-97); MEAN PLATELET VOLUME 7.1 fL (7.4-10.4); PLATELET COUNT 487 x10^3/uL (130-400); RED BLOOD COUNT 5.32 x10^6/uL (4.38-5.82); RED CELL DISTRIBUTION WIDTH 15.6 % (9.4-14.8)
[2019-12-10 10:29] LABS: ALANINE AMINOTRANSFERASE 11 U/L (12-78); ALBUMIN 1.9 g/dL (3.4-5.0); ANION GAP 11 mmol/L (5-15); CALCIUM 9.3 mg/dL (8.5-10.1); CHLORIDE 93 mmol/L (98-107); CREATININE 0.77 mg/dL (0.7-1.3)
[2019-12-10 10:40] LABS: ALKALINE PHOSPHATASE 278 U/L (45-117); BILIRUBIN,TOTAL 0.3 mg/dL (0.2-1.0); TOTAL PROTEIN 6.4 g/dL (6.4-8.2); TROPONIN I < 0.015 ng/mL (0.000-0.045)
--- NOTE | 2019-12-10 10:42 | NUR ---
PT REQUESTING MORE PAIN MEDICATION. SPOKE WITH JOSE DOVER FOR ORDER.
--- NOTE | 2019-12-10 10:51 | NUR ---
MEDICATED PER ORDERS FOR PAIN.
[2019-12-10] MEDS ORDERED: AZITHROMYCIN 500 MG in SODIUM CHLORIDE 0.9% 250 ML IV ONE (11:00)
[2019-12-10] MEDS ORDERED: CEFTRIAXONE PMX 1GM/50ML 50 ML IV ONE (11:00)
[2019-12-10] MEDS ORDERED: HYDROmorphone 2 MG/ML, 1ML IVPush PRN (11:00)
--- NOTE | 2019-12-10 11:06 | NUR ---
PT TO CT SCAN
[2019-12-10 11:08] LABS: BASOPHILS # (AUTO) 0.03 x10^3/uL (0-0.1); BASOPHILS % (AUTO) 0 % (0-1); EOSINOPHILS # (AUTO) 0.06 x10^3/uL (0-0.4); EOSINOPHILS % (AUTO) 0 % (1-7); LYMPHOCYTES # (AUTO) 0.99 x10^3/uL (1-3.4); LYMPHOCYTES % (AUTO) 6 % (22-44); MD SCAN; MONOCYTES # (AUTO) 0.95 x10^3/uL (0.2-0.8); MONOCYTES % (AUTO) 6 % (2-9); NEUTROPHILS # (AUTO) 15.05 x10^3/uL (1.8-6.8); NEUTROPHILS % (AUTO) 88 % (42-75)
[2019-12-10] MEDS ORDERED: CEFTRIAXONE PMX 1GM/50ML 50 ML ONE (11:09)
--- NOTE | 2019-12-10 11:17 | NUR ---
PT BACK TO ROOM. PAIN HAS DECREASED. VERBALIZED NO NEEDS AT THIS TIME.
[2019-12-10] MEDS ORDERED: OMNIPAQUE 350 MG/ML, 100ML BOTTLE ONE (11:18)
--- NOTE | 2019-12-10 11:29 | NUR ---
LAB IN ROOM DRAWING CULTURES X 2.
--- NOTE | 2019-12-10 11:35 | NUR ---
ANTIBX HUNG AFTER BLOOD CULTURES DRAWN X 2
--- NOTE | 2019-12-10 12:31 | NUR ---
BREAK RN: PT CURRENTLY DOZING ON JIMMY. PT AWAKENS EASILY TO NAME BEING CALLED. NO ACUTE DISTRESS NOTED AT THIS TIME. SISTER AT BEDSIDE. PT ON CONT BP, CARDIAC AND O2 MONITORS. CALL LIGHT WITHIN REACH.
--- NOTE | 2019-12-10 13:26 | NUR ---
DR. WILEKS NOTIFIED SISTER OF CT RESULTS. INCREASE EMOTIONAL SUPPORT GIVEN. NILAY TREJO IN FOR ASSISTANCE WITH FAMILY AND SUPPORT.
[2019-12-10] MEDS ORDERED: ENOXAPARIN 40 MG/0.4 ML SQ SCH (15:00)
[2019-12-10] MEDS ORDERED: hydrALAzine 20 MG/ML, 1ML IVPush PRN (15:00)
[2019-12-10] MEDS ORDERED: BISACODYL 10 MG SUPP PR PRN (15:00)
[2019-12-10] MEDS ORDERED: LABETALOL 5MG/ML, 20ML IVPush PRN (15:00)
[2019-12-10] MEDS ORDERED: ONDANSETRON ODT 4 MG PO PRN (15:00)
[2019-12-10] MEDS ORDERED: ACETAMINOPHEN 325 MG TABLET PO PRN (15:00)
[2019-12-10 15:36] VITALS: BP 106/73
[2019-12-10] MEDS: morphine SULFATE 10 MG/ML, 1ML IVPush PRN ×3 (15:51→21:37)
[2019-12-10] MEDS: SODIUM CHLORIDE 0.9% 1,000 ML IV SCH (15:54)
[2019-12-10 19:02] VITALS: BP 115/74
[2019-12-11] MEDS: morphine SULFATE 10 MG/ML, 1ML IVPush PRN ×5 (01:02→20:45)
[2019-12-11 01:17] VITALS: BP 106/66
[2019-12-11] MEDS: SODIUM CHLORIDE 0.9% 1,000 ML IV SCH ×2 (02:54→17:35)
[2019-12-11 05:15] LABS: BASOPHILS % (AUTO) 0 % (0-1); EOSINOPHILS # (AUTO) 0.14 x10^3/uL (0-0.4); EOSINOPHILS % (AUTO) 1 % (1-7); LYMPHOCYTES # (AUTO) 0.85 x10^3/uL (1-3.4); LYMPHOCYTES % (AUTO) 7 % (22-44); MD NO; MEAN CORPUSCULAR HEMOGLOBIN 24.5 pg (27.5-34.5); MEAN CORPUSCULAR HGB CONC 32.2 g/dL (33.2-36.2); MEAN CORPUSCULAR VOLUME 76.1 fL (81-97); MEAN PLATELET VOLUME 7.6 fL (7.4-10.4); MONOCYTES # (AUTO) 0.98 x10^3/uL (0.2-0.8); MONOCYTES % (AUTO) 8 % (2-9); NEUTROPHILS # (AUTO) 10.83 x10^3/uL (1.8-6.8); NEUTROPHILS % (AUTO) 85 % (42-75); PLATELET COUNT 419 x10^3/uL (130-400); RED BLOOD COUNT 4.56 x10^6/uL (4.38-5.82); RED CELL DISTRIBUTION WIDTH 15.2 % (9.4-14.8)
[2019-12-11 05:25] LABS: ALANINE AMINOTRANSFERASE 10 U/L (12-78); ALBUMIN 1.7 g/dL (3.4-5.0); ANION GAP 8 mmol/L (5-15); CHLORIDE 98 mmol/L (98-107)
[2019-12-11 05:28] LABS: ALKALINE PHOSPHATASE 269 U/L (45-117); BILIRUBIN,TOTAL 0.2 mg/dL (0.2-1.0); CREATININE 0.48 mg/dL (0.7-1.3); TOTAL PROTEIN 5.7 g/dL (6.4-8.2)
[2019-12-11 09:01] VITALS: BP 114/78
[2019-12-11] MEDS: KETOROLAC 30 MG/1 ML IVPush PRN ×2 (09:16→16:00)
[2019-12-11] MEDS: CEFTRIAXONE PMX 1GM/50ML 50 ML IV SCH (11:55)
[2019-12-11] MEDS: AZITHROMYCIN 500 MG in SODIUM CHLORIDE 0.9% 250 ML IV SCH (12:40)
[2019-12-11] MEDS: HYDROcodone/APAP 5/325 TABLET PO PRN ×2 (12:50→17:41)
[2019-12-11 13:49] VITALS: BP 114/77
[2019-12-11] MEDS ORDERED: Enoxaparin 1 mg/kg protocol SQ SCH (16:00)
[2019-12-11] MEDS: ENOXAPARIN 60 MG/0.6 ML SQ SCH (16:01)
[2019-12-11] MEDS ORDERED: GADOTERATE 7.5 MMOL/15 ML SYR ONE (17:04)
[2019-12-11 19:17] VITALS: BP 98/66
[2019-12-12 01:10] VITALS: BP 92/66
[2019-12-12] MEDS: KETOROLAC 30 MG/1 ML IVPush PRN ×2 (01:30→21:26)
[2019-12-12] MEDS: SODIUM CHLORIDE 0.9% 1,000 ML IV SCH ×2 (02:07→12:26)
[2019-12-12] MEDS: ENOXAPARIN 60 MG/0.6 ML SQ SCH ×2 (04:09→15:42)
[2019-12-12 05:14] LABS: BASOPHILS # (AUTO) 0.03 x10^3/uL (0-0.1); BASOPHILS % (AUTO) 0 % (0-1); EOSINOPHILS # (AUTO) 0.22 x10^3/uL (0-0.4); EOSINOPHILS % (AUTO) 2 % (1-7); LYMPHOCYTES # (AUTO) 1.02 x10^3/uL (1-3.4); LYMPHOCYTES % (AUTO) 7 % (22-44); MD NO; MEAN CORPUSCULAR HEMOGLOBIN 24.1 pg (27.5-34.5); MEAN CORPUSCULAR HGB CONC 31.5 g/dL (33.2-36.2); MEAN CORPUSCULAR VOLUME 76.6 fL (81-97); MEAN PLATELET VOLUME 7.5 fL (7.4-10.4); MONOCYTES # (AUTO) 0.81 x10^3/uL (0.2-0.8); MONOCYTES % (AUTO) 6 % (2-9); NEUTROPHILS # (AUTO) 12.02 x10^3/uL (1.8-6.8); NEUTROPHILS % (AUTO) 85 % (42-75); PLATELET COUNT 445 x10^3/uL (130-400); RED BLOOD COUNT 4.69 x10^6/uL (4.38-5.82); RED CELL DISTRIBUTION WIDTH 15.9 % (9.4-14.8)
[2019-12-12 05:21] LABS: ALBUMIN 1.6 g/dL (3.4-5.0); ANION GAP 9 mmol/L (5-15); CALCIUM 8.8 mg/dL (8.5-10.1); CHLORIDE 100 mmol/L (98-107)
[2019-12-12 05:25] LABS: ALANINE AMINOTRANSFERASE 9 U/L (12-78); ALKALINE PHOSPHATASE 271 U/L (45-117); BILIRUBIN,TOTAL 0.2 mg/dL (0.2-1.0); CREATININE 0.49 mg/dL (0.7-1.3); TOTAL PROTEIN 5.6 g/dL (6.4-8.2)
[2019-12-12] MEDS: ASPIRIN 81 MG TABLET EC PO SCH (08:25)
[2019-12-12 08:31] VITALS: BP 107/75
[2019-12-12] MEDS: HYDROcodone/APAP 5/325 TABLET PO PRN (10:45)
[2019-12-12] MEDS: CEFTRIAXONE PMX 1GM/50ML 50 ML IV SCH (11:46)
[2019-12-12] MEDS: AZITHROMYCIN 500 MG in SODIUM CHLORIDE 0.9% 250 ML IV SCH (12:27)
[2019-12-12] MEDS: morphine SULFATE 10 MG/ML, 1ML IVPush PRN ×2 (15:39→19:30)
[2019-12-12 15:59] VITALS: BP 117/81
[2019-12-12 19:11] VITALS: BP 114/76
[2019-12-12] MEDS: POLYETHYLENE GLYCOL 17 GM PACKET PO PRN (19:41)
[2019-12-13] MEDS: morphine SULFATE 10 MG/ML, 1ML IVPush PRN ×3 (00:40→19:41)
[2019-12-13] MEDS: SODIUM CHLORIDE 0.9% 1,000 ML IV SCH ×3 (00:40→21:38)
[2019-12-13 01:17] VITALS: BP 112/77
[2019-12-13] MEDS: ENOXAPARIN 60 MG/0.6 ML SQ SCH (04:32)
[2019-12-13 07:28] VITALS: BP 117/83
[2019-12-13] MEDS: ASPIRIN 81 MG TABLET EC PO SCH (08:41)
[2019-12-13] MEDS: HYDROcodone/APAP 5/325 TABLET PO PRN ×3 (08:51→23:51)
[2019-12-13 09:00] LABS: CHOL/HDL RATIO 5.2; LDL/HDL RATIO 2.2 (0.5-3.0)
[2019-12-13] MEDS: CEFTRIAXONE PMX 1GM/50ML 50 ML IV SCH (11:04)
[2019-12-13] MEDS: AZITHROMYCIN 500 MG in SODIUM CHLORIDE 0.9% 250 ML IV SCH (12:25)
[2019-12-13 15:40] VITALS: BP 122/90
[2019-12-13] MEDS: ENOXAPARIN 80 MG/0.8 ML SQ SCH (15:43)
[2019-12-13 20:00] VITALS: BP 118/83
[2019-12-14 02:17] VITALS: BP 121/82
[2019-12-14] MEDS: ENOXAPARIN 80 MG/0.8 ML SQ SCH ×3 (03:49→17:52)
[2019-12-14] MEDS: morphine SULFATE 10 MG/ML, 1ML IVPush PRN ×4 (04:11→21:24)
[2019-12-14 05:28] LABS: MEAN CORPUSCULAR HGB CONC 31.7 g/dL (33.2-36.2); MEAN CORPUSCULAR VOLUME 75.7 fL (81-97); MEAN PLATELET VOLUME 7.4 fL (7.4-10.4); PLATELET COUNT 464 x10^3/uL (130-400); RED BLOOD COUNT 4.62 x10^6/uL (4.38-5.82); RED CELL DISTRIBUTION WIDTH 16.3 % (9.4-14.8)
[2019-12-14 05:41] LABS: ALBUMIN 1.4 g/dL (3.4-5.0); ANION GAP 8 mmol/L (5-15); CALCIUM 9.1 mg/dL (8.5-10.1); CHLORIDE 102 mmol/L (98-107)
[2019-12-14 05:45] LABS: % IRON SATURATION 6 % (20-55); ALANINE AMINOTRANSFERASE 8 U/L (12-78); ALKALINE PHOSPHATASE 391 U/L (45-117); BILIRUBIN,TOTAL 0.2 mg/dL (0.2-1.0); CREATININE 0.37 mg/dL (0.7-1.3); IRON LEVEL 10 mcg/dL (65-175); TOTAL IRON BINDING CAPACITY 155 mcg/dL (250-450); TOTAL PROTEIN 5.6 g/dL (6.4-8.2)
[2019-12-14 07:58] LABS: MD YES
[2019-12-14 08:00] VITALS: BP 117/78
[2019-12-14 08:00] LABS: BAND#(MANUAL) 0.37 x10^3/uL; BANDS%(MANUAL) 2 % (0-7); LYMPH#(MANUAL) 0.92 x10^3/uL (1-3.4); LYMPHS% (MANUAL) 5 % (22-44); MONOS#(MANUAL) 1.84 x10^3/uL (0.3-2.7); MONOS% (MANUAL) 10 % (2-9); MYELOCYTES# (MANUAL) 0.18 x10^3/uL (0-0); MYELOCYTES% (MANUAL) 1 % (0-0); SEG#(MANUAL) 15.09 x10^3/uL (1.8-6.8); SEGS% (MANUAL) 82 % (42-75)
[2019-12-14 08:01] LABS: ANISOCYTOSIS 1+
[2019-12-14 08:02] LABS: <PLATELET ESTIMATE> ADEQUATE; <PLT MORPHOLOGY> NORMAL PLT MORPH; OVALOCYTES 1+
[2019-12-14] MEDS: HYDROcodone/APAP 5/325 TABLET PO PRN (08:51)
[2019-12-14] MEDS: ASPIRIN 81 MG TABLET EC PO SCH (08:51)
[2019-12-14] MEDS: SODIUM CHLORIDE 0.9% 1,000 ML IV SCH ×2 (08:51→17:51)
[2019-12-14] MEDS: CEFTRIAXONE PMX 1GM/50ML 50 ML IV SCH (11:37)
[2019-12-14] MEDS: AZITHROMYCIN 500 MG in SODIUM CHLORIDE 0.9% 250 ML IV SCH (12:36)
[2019-12-14 14:01] VITALS: BP 120/79
[2019-12-14] MEDS: HYDROmorphone 1 MG/ML, 1ML INJ IV PRN (18:07)
[2019-12-14 19:18] VITALS: BP 131/89
[2019-12-14] MEDS: KETOROLAC 30 MG/1 ML IVPush PRN (21:24)
[2019-12-14 21:30] VITALS: BP 148/95
[2019-12-14 22:00] VITALS: BP 110/76
[2019-12-15 02:34] VITALS: BP 116/80
[2019-12-15] MEDS: morphine SULFATE 10 MG/ML, 1ML IVPush PRN ×4 (02:45→17:45)
[2019-12-15] MEDS: SODIUM CHLORIDE 0.9% 1,000 ML IV SCH ×2 (04:25→19:23)
[2019-12-15] MEDS: KETOROLAC 30 MG/1 ML IVPush PRN ×2 (06:21→11:30)
[2019-12-15] MEDS: ENOXAPARIN 80 MG/0.8 ML SQ SCH ×2 (06:21→16:53)
[2019-12-15] MEDS: ASPIRIN 81 MG TABLET EC PO SCH (08:21)
[2019-12-15 08:56] VITALS: BP 119/84
[2019-12-15] MEDS: CEFTRIAXONE PMX 1GM/50ML 50 ML IV SCH (11:30)
[2019-12-15] MEDS ORDERED: MORPHINE SULFATE 4 MG/ML, 1ML ONE (12:08)
[2019-12-15] MEDS: AZITHROMYCIN 500 MG in SODIUM CHLORIDE 0.9% 250 ML IV SCH (12:14)
[2019-12-15 12:46] VITALS: BP 107/74
[2019-12-15] MEDS: HYDROmorphone 1 MG/ML, 1ML INJ IV PRN (13:07)
[2019-12-15] MEDS: HYDROcodone/APAP 5/325 TABLET PO PRN ×3 (14:09→23:26)
[2019-12-15] MEDS: DOCUSATE 100 MG CAPSULE PO PRN (14:09)
[2019-12-15 19:29] VITALS: BP 119/78
[2019-12-16 00:14] VITALS: BP 117/75
[2019-12-16] MEDS: ENOXAPARIN 80 MG/0.8 ML SQ SCH ×2 (04:15→17:53)
[2019-12-16] MEDS: SODIUM CHLORIDE 0.9% 1,000 ML IV SCH ×2 (04:15→18:10)
[2019-12-16] MEDS: HYDROcodone/APAP 5/325 TABLET PO PRN ×4 (04:15→19:23)
[2019-12-16 08:08] VITALS: BP 124/88
[2019-12-16] MEDS: ASPIRIN 81 MG TABLET EC PO SCH (08:48)
[2019-12-16] MEDS: HYDROmorphone 1 MG/ML, 1ML INJ IV PRN (10:40)
[2019-12-16] MEDS: CEFTRIAXONE PMX 1GM/50ML 50 ML IV SCH (11:57)
[2019-12-16] MEDS ORDERED: HYDROcodone/APAP 10/325 MG TABLET ONE (12:15)
[2019-12-16 12:35] VITALS: BP 121/86
[2019-12-16] MEDS: AZITHROMYCIN 500 MG in SODIUM CHLORIDE 0.9% 250 ML IV SCH (13:24)
[2019-12-16] MEDS: morphine SULFATE 10 MG/ML, 1ML IVPush PRN ×2 (17:53→21:19)
[2019-12-16 19:42] VITALS: BP 118/81
[2019-12-17] MEDS: SODIUM CHLORIDE 0.9% 1,000 ML IV SCH ×3 (00:25→23:49)
[2019-12-17 04:29] VITALS: BP 111/78
[2019-12-17] MEDS: morphine SULFATE 10 MG/ML, 1ML IVPush PRN ×4 (04:42→23:49)
[2019-12-17] MEDS: ENOXAPARIN 80 MG/0.8 ML SQ SCH ×2 (04:42→18:02)
[2019-12-17 05:57] LABS: MEAN CORPUSCULAR HEMOGLOBIN 23.9 pg (27.5-34.5); MEAN CORPUSCULAR HGB CONC 31.8 g/dL (33.2-36.2); MEAN CORPUSCULAR VOLUME 75.3 fL (81-97); MEAN PLATELET VOLUME 7.7 fL (7.4-10.4); PLATELET COUNT 436 x10^3/uL (130-400); RED BLOOD COUNT 4.67 x10^6/uL (4.38-5.82); RED CELL DISTRIBUTION WIDTH 16.4 % (9.4-14.8)
[2019-12-17 06:05] LABS: ALBUMIN 1.3 g/dL (3.4-5.0); ANION GAP 6 mmol/L (5-15); CALCIUM 9.6 mg/dL (8.5-10.1); CHLORIDE 106 mmol/L (98-107)
[2019-12-17 06:09] LABS: ALANINE AMINOTRANSFERASE 13 U/L (12-78); ALKALINE PHOSPHATASE 497 U/L (45-117); BILIRUBIN,TOTAL 0.1 mg/dL (0.2-1.0); CREATININE 0.29 mg/dL (0.7-1.3); TOTAL PROTEIN 5.2 g/dL (6.4-8.2)
[2019-12-17 06:16] LABS: BASOPHILS # (AUTO) 0.17 x10^3/uL (0-0.1); BASOPHILS % (AUTO) 1 % (0-1); EOSINOPHILS # (AUTO) 0.06 x10^3/uL (0-0.4); EOSINOPHILS % (AUTO) 0 % (1-7); LYMPHOCYTES # (AUTO) 0.75 x10^3/uL (1-3.4); LYMPHOCYTES % (AUTO) 5 % (22-44); MD SCAN; MONOCYTES # (AUTO) 0.59 x10^3/uL (0.2-0.8); MONOCYTES % (AUTO) 4 % (2-9); NEUTROPHILS # (AUTO) 14.72 x10^3/uL (1.8-6.8); NEUTROPHILS % (AUTO) 90 % (42-75)
[2019-12-17 06:45] VITALS: BP 122/79
[2019-12-17] MEDS: ONDANSETRON 2MG/ML, 2ML IVPush PRN (08:28)
[2019-12-17] MEDS: HYDROcodone/APAP 5/325 TABLET PO PRN ×3 (08:29→18:03)
[2019-12-17] MEDS: ASPIRIN 81 MG TABLET EC PO SCH (08:29)
[2019-12-17] MEDS: CEFTRIAXONE PMX 1GM/50ML 50 ML IV SCH (11:00)
[2019-12-17] MEDS: AZITHROMYCIN 500 MG in SODIUM CHLORIDE 0.9% 250 ML IV SCH (13:32)
[2019-12-17 14:25] VITALS: BP 130/72
[2019-12-17 18:57] VITALS: BP 118/73
[2019-12-18 01:55] VITALS: BP 116/74
[2019-12-18] MEDS: ENOXAPARIN 80 MG/0.8 ML SQ SCH ×2 (05:31→17:08)
[2019-12-18] MEDS: HYDROcodone/APAP 5/325 TABLET PO PRN ×4 (05:31→21:55)
[2019-12-18 06:44] VITALS: BP 99/73
[2019-12-18] MEDS: CEFTRIAXONE PMX 1GM/50ML 50 ML IV SCH (10:23)
[2019-12-18] MEDS: SODIUM CHLORIDE 0.9% 1,000 ML IV SCH ×2 (10:23→23:00)
[2019-12-18] MEDS: ASPIRIN 81 MG TABLET EC PO SCH (10:23)
[2019-12-18] MEDS ORDERED: KETOROLAC 30 MG/1 ML IM SCH (12:00)
[2019-12-18] MEDS: morphine SULFATE 10 MG/ML, 1ML IVPush PRN (12:13)
[2019-12-18 12:27] VITALS: BP 102/77
[2019-12-18] MEDS: KETOROLAC 30 MG/1 ML IVPush SCH ×2 (12:53→19:52)
[2019-12-18 18:40] VITALS: BP 123/81
[2019-12-19 01:01] VITALS: BP 123/83
[2019-12-19] MEDS: KETOROLAC 30 MG/1 ML IVPush SCH ×4 (01:08→19:52)
[2019-12-19] MEDS: ENOXAPARIN 80 MG/0.8 ML SQ SCH ×2 (04:55→16:33)
[2019-12-19] MEDS: HYDROcodone/APAP 5/325 TABLET PO PRN ×2 (04:59→09:32)
[2019-12-19 08:19] VITALS: BP 135/71
[2019-12-19] MEDS: SODIUM CHLORIDE 0.9% 1,000 ML IV SCH (09:11)
[2019-12-19] MEDS: ASPIRIN 81 MG TABLET EC PO SCH (09:11)
[2019-12-19] MEDS: POLYETHYLENE GLYCOL 17 GM PACKET PO PRN (09:31)
[2019-12-19] MEDS ORDERED: MAGNESIUM HYDROXIDE 8%, 30ML UDC PO PRN (10:30)
[2019-12-19] MEDS: morphine SULFATE 10 MG/ML, 1ML IVPush PRN ×3 (11:51→23:11)
[2019-12-19 13:04] VITALS: BP 133/86
[2019-12-19] MEDS ORDERED: FUROSEMIDE 40 MG/4 ML IV ONE (17:00)
[2019-12-19 17:38] LABS: MEAN CORPUSCULAR HEMOGLOBIN 24.2 pg (27.5-34.5); MEAN CORPUSCULAR HGB CONC 32.1 g/dL (33.2-36.2); MEAN CORPUSCULAR VOLUME 75.3 fL (81-97); MEAN PLATELET VOLUME 7.6 fL (7.4-10.4); PLATELET COUNT 477 x10^3/uL (130-400); RED CELL DISTRIBUTION WIDTH 16.6 % (9.4-14.8)
[2019-12-19 17:45] LABS: ALANINE AMINOTRANSFERASE 11 U/L (12-78); ALBUMIN 1.4 g/dL (3.4-5.0); ANION GAP 9 mmol/L (5-15); CALCIUM 9.7 mg/dL (8.5-10.1); CHLORIDE 104 mmol/L (98-107)
[2019-12-19 17:47] LABS: ALKALINE PHOSPHATASE 452 U/L (45-117); BILIRUBIN,TOTAL 0.1 mg/dL (0.2-1.0); CREATININE 0.49 mg/dL (0.7-1.3); TOTAL PROTEIN 5.2 g/dL (6.4-8.2)
[2019-12-19 17:52] LABS: MD YES
[2019-12-19 17:54] LABS: <PLATELET ESTIMATE> ADEQUATE; ANISOCYTOSIS 1+; BAND#(MANUAL) 0.37 x10^3/uL; BANDS%(MANUAL) 2 % (0-7); LYMPH#(MANUAL) 0.74 x10^3/uL (1-3.4); LYMPHS% (MANUAL) 4 % (22-44); MONOS% (MANUAL) 7 % (2-9); OVALOCYTES 1+; SEGS% (MANUAL) 87 % (42-75)
[2019-12-19 17:55] LABS: <PLT MORPHOLOGY> NORMAL PLT MORPH
[2019-12-19] MEDS ORDERED: VANCOMYCIN PER PHARMACY MC PRN (18:00)
[2019-12-19] MEDS ORDERED: PHARMACOKINETIC MONITORING MC PRN (18:30)
[2019-12-19] MEDS: PIPERACILLIN/TAZO/PMX 4.5GM 100 ML IV SCH (18:34)
[2019-12-19 18:41] VITALS: BP 136/87
[2019-12-19 19:34] LABS: MICROSCOPIC NOT IND
[2019-12-19] MEDS: VANCOMYCIN 1,800 MG in SODIUM CHLORIDE 0.9% 250 ML IV SCH (21:18)
[2019-12-19 23:03] VITALS: BP 116/74
[2019-12-20] MEDS: PIPERACILLIN/TAZO/PMX 4.5GM 100 ML IV SCH ×4 (00:46→19:59)
[2019-12-20 00:51] VITALS: BP 101/78
[2019-12-20] MEDS: KETOROLAC 30 MG/1 ML IVPush SCH ×4 (02:18→19:59)
[2019-12-20] MEDS: ENOXAPARIN 80 MG/0.8 ML SQ SCH ×2 (04:46→17:32)
[2019-12-20 05:53] LABS: MEAN CORPUSCULAR HGB CONC 31.6 g/dL (33.2-36.2); MEAN CORPUSCULAR VOLUME 75.8 fL (81-97); MEAN PLATELET VOLUME 7.7 fL (7.4-10.4); PLATELET COUNT 478 x10^3/uL (130-400); RED BLOOD COUNT 4.47 x10^6/uL (4.38-5.82); RED CELL DISTRIBUTION WIDTH 16.4 % (9.4-14.8)
[2019-12-20 06:08] LABS: CHLORIDE 104 mmol/L (98-107)
[2019-12-20 06:15] LABS: ALANINE AMINOTRANSFERASE 10 U/L (12-78); ALBUMIN 1.4 g/dL (3.4-5.0); ALKALINE PHOSPHATASE 443 U/L (45-117); ANION GAP 8 mmol/L (5-15); BILIRUBIN,TOTAL 0.3 mg/dL (0.2-1.0); TOTAL PROTEIN 5.3 g/dL (6.4-8.2)
[2019-12-20 06:18] LABS: BASOPHILS # (AUTO) 0.09 x10^3/uL (0-0.1); BASOPHILS % (AUTO) 1 % (0-1); EOSINOPHILS # (AUTO) 0.14 x10^3/uL (0-0.4); EOSINOPHILS % (AUTO) 1 % (1-7); LYMPHOCYTES # (AUTO) 0.79 x10^3/uL (1-3.4); LYMPHOCYTES % (AUTO) 5 % (22-44); MD SCAN; MONOCYTES # (AUTO) 0.61 x10^3/uL (0.2-0.8); MONOCYTES % (AUTO) 4 % (2-9); NEUTROPHILS # (AUTO) 15.62 x10^3/uL (1.8-6.8); NEUTROPHILS % (AUTO) 91 % (42-75)
[2019-12-20] MEDS ORDERED: FUROSEMIDE 40 MG/4 ML IV ONE (08:30)
[2019-12-20 08:40] VITALS: BP 108/77
[2019-12-20] MEDS: ASPIRIN 81 MG TABLET EC PO SCH (08:42)
[2019-12-20] MEDS: ONDANSETRON 2MG/ML, 2ML IVPush PRN (08:58)
[2019-12-20] MEDS: HYDROcodone/APAP 5/325 TABLET PO PRN (08:58)
[2019-12-20] MEDS: VANCOMYCIN 1,800 MG in SODIUM CHLORIDE 0.9% 250 ML IV SCH ×2 (10:28→22:15)
[2019-12-20] MEDS: morphine SULFATE 10 MG/ML, 1ML IVPush PRN ×4 (10:28→22:27)
[2019-12-20] MEDS ORDERED: OMNIPAQUE 350 MG/ML, 100ML BOTTLE ONE (14:06)
[2019-12-20 14:30] VITALS: BP 118/89
[2019-12-20] MEDS ORDERED: LIDOCAINE 1%, 10ML ONE (14:56)
[2019-12-20 18:45] VITALS: BP 115/80
[2019-12-21 00:38] VITALS: BP 119/83
[2019-12-21] MEDS: PIPERACILLIN/TAZO/PMX 4.5GM 100 ML IV SCH ×4 (01:32→19:14)
[2019-12-21] MEDS: KETOROLAC 30 MG/1 ML IVPush SCH ×4 (01:39→23:17)
[2019-12-21] MEDS: morphine SULFATE 10 MG/ML, 1ML IVPush PRN ×5 (02:58→21:46)
[2019-12-21] MEDS: ENOXAPARIN 80 MG/0.8 ML SQ SCH ×2 (04:39→17:06)
[2019-12-21 06:31] VITALS: BP 120/80
[2019-12-21] MEDS: ASPIRIN 81 MG TABLET EC PO SCH (08:40)
[2019-12-21] MEDS: VANCOMYCIN 1,800 MG in SODIUM CHLORIDE 0.9% 250 ML IV SCH ×2 (11:28→22:30)
[2019-12-21 12:30] VITALS: BP 95/69
[2019-12-21 19:09] VITALS: BP 117/81
[2019-12-22] MEDS: PIPERACILLIN/TAZO/PMX 4.5GM 100 ML IV SCH ×4 (01:08→21:21)
[2019-12-22 01:22] VITALS: BP 111/77
[2019-12-22] MEDS: morphine SULFATE 10 MG/ML, 1ML IVPush PRN ×3 (01:41→15:13)
[2019-12-22] MEDS: KETOROLAC 30 MG/1 ML IVPush SCH ×4 (05:01→23:32)
[2019-12-22] MEDS: ENOXAPARIN 100 MG/ML SQ SCH ×2 (05:02→17:03)
[2019-12-22 07:09] VITALS: BP 111/72
[2019-12-22] MEDS: ASPIRIN 81 MG TABLET EC PO SCH (07:58)
[2019-12-22] MEDS: VANCOMYCIN 1,800 MG in SODIUM CHLORIDE 0.9% 250 ML IV SCH (07:59)
[2019-12-22] MEDS: HYDROcodone/APAP 5/325 TABLET PO PRN ×3 (07:59→22:20)
[2019-12-22 12:46] VITALS: BP 111/81
[2019-12-22] MEDS: HYDROmorphone 1 MG/ML, 1ML INJ IV PRN ×2 (17:03→21:21)
[2019-12-22 21:47] VITALS: BP 117/71
[2019-12-23] MEDS: VANCOMYCIN 1,800 MG in SODIUM CHLORIDE 0.9% 250 ML IV SCH ×2 (01:04→19:14)
[2019-12-23 01:19] VITALS: BP 99/64
[2019-12-23] MEDS: HYDROmorphone 1 MG/ML, 1ML INJ IV PRN ×4 (01:21→19:56)
[2019-12-23] MEDS: PIPERACILLIN/TAZO/PMX 4.5GM 100 ML IV SCH ×4 (03:26→22:46)
[2019-12-23] MEDS: HYDROcodone/APAP 5/325 TABLET PO PRN ×4 (03:40→23:16)
[2019-12-23] MEDS: ENOXAPARIN 100 MG/ML SQ SCH ×2 (05:45→17:06)
[2019-12-23] MEDS: KETOROLAC 30 MG/1 ML IVPush SCH ×2 (05:46→12:04)
[2019-12-23 09:30] VITALS: BP 110/74
[2019-12-23] MEDS: ASPIRIN 81 MG TABLET EC PO SCH (09:33)
[2019-12-23] MEDS: morphine SULFATE 10 MG/ML, 1ML IVPush PRN (11:11)
[2019-12-23 15:52] VITALS: BP 106/76
[2019-12-23] MEDS: SODIUM CHLORIDE 0.9% 1,000 ML IV SCH (17:52)
[2019-12-23 19:21] VITALS: BP 111/78
[2019-12-24] MEDS: HYDROmorphone 1 MG/ML, 1ML INJ IV PRN ×2 (01:45→08:36)
[2019-12-24 01:50] VITALS: BP 107/69
[2019-12-24] MEDS: PIPERACILLIN/TAZO/PMX 4.5GM 100 ML IV SCH ×2 (04:31→09:37)
[2019-12-24] MEDS: ENOXAPARIN 100 MG/ML SQ SCH (04:31)
[2019-12-24] MEDS: HYDROcodone/APAP 5/325 TABLET PO PRN (04:32)
[2019-12-24] MEDS: DOCUSATE 100 MG CAPSULE PO PRN (08:36)
[2019-12-24] MEDS: ASPIRIN 81 MG TABLET EC PO SCH (08:36)
[2019-12-24 09:59] VITALS: BP 118/78
[2019-12-24] MEDS ORDERED: FUROSEMIDE 20 MG/2 ML ONE (10:58)
[2019-12-24] MEDS ORDERED: HYDROmorphone 1 MG/ML, 1ML INJ IV PRN (11:00)
[2019-12-24] MEDS ORDERED: FUROSEMIDE 20 MG/2 ML IV ONE ×2 (11:00→11:30)
[2019-12-24 11:30] VITALS: BP 108/60
[2019-12-24] MEDS: VANCOMYCIN 1,800 MG in SODIUM CHLORIDE 0.9% 250 ML IV SCH (13:00)
[2019-12-24] MEDS: SODIUM CHLORIDE 0.9% 1,000 ML IV SCH (13:30)
[2019-12-24] MEDS ORDERED: SCOPOLAMINE 1MG PATCH TD PRN (13:30)
[2019-12-24] MEDS ORDERED: ONDANSETRON 2MG/ML, 2ML IVPush PRN (13:30)
[2019-12-24] MEDS: MORPHINE 30MG/30ML PCA.SYR IV PRN ×2 (15:20→20:05)
[2019-12-24] MEDS: LORazepam 2 MG/ML, 1ML IVPush PRN ×2 (17:53→22:39)
[2019-12-24] MEDS: ATROPINE OPHTH SOLN 1%, 5ML PO PRN (22:39)
[2019-12-25] MEDS: MORPHINE 30MG/30ML PCA.SYR IV PRN (00:03)
[2019-12-25] MEDS: ATROPINE OPHTH SOLN 1%, 5ML PO PRN ×2 (00:13→02:53)
== END 2019-12-25 16:15 | disposition expired | DRG 871 ==
LOC: ED 10:38 → EDIP 12:48 → 3N 15:28 → 3WST 12-14 18:51
PROVIDERS: ADMIT Internal Medicine; ATTEND Internal Medicine
PROC: 0W9B3ZZ Drainage of Left Pleural Cavity, Percutaneous Approach (ICD-10-PCS; principal; 2019-12-20)
DX: A41.9 Sepsis, unspecified organism (principal); E43 Unspecified severe protein-calorie malnutrition; J15.9 Unspecified bacterial pneumonia; J96.01 Acute respiratory failure with hypoxia; I63.9 Cerebral infarction, unspecified; C18.9 Malignant neoplasm of colon, unspecified; C34.91 Malignant neoplasm of unspecified part of right bronchus or lung; C78.02 Secondary malignant neoplasm of left lung; C78.7 Secondary malignant neoplasm of liver and intrahepatic bile duct; C79.31 Secondary malignant neoplasm of brain; C79.51 Secondary malignant neoplasm of bone; C79.89 Secondary malignant neoplasm of other specified sites; E87.1 Hypo-osmolality and hyponatremia; I31.3 Pericardial effusion (noninflammatory); M84.48XA Pathological fracture, other site, initial encounter for fracture; D50.9 Iron deficiency anemia, unspecified; D63.8 Anemia in other chronic diseases classified elsewhere; E87.5 Hyperkalemia; I11.0 Hypertensive heart disease with heart failure; I50.9 Heart failure, unspecified; J98.4 Other disorders of lung; R13.10 Dysphagia, unspecified; Z51.5 Encounter for palliative care; Z79.01 Long term (current) use of anticoagulants; Z83.3 Family history of diabetes mellitus; Z87.891 Personal history of nicotine dependence; Z92.3 Personal history of irradiation; M48.02 Spinal stenosis, cervical region; Z86.718 Personal history of other venous thrombosis and embolism; Z68.39 Body mass index [BMI] 39.0-39.9, adult
CPT/HCPCS: 32555; 36415; 36600; 84145; 96361; 96365; 96375; 99285; J3490; 70553; 71045; 71260; 71275; 72156; 74177; 77295; 77300; 77334; 77336; 77387; 77412; 77470; 80053; 80061; 80202; 81003; 82728; 82803; 83540; 83550; 83605; 83690; 83735; 83880; 84100; 84484; 85025; 86850; 86900; 87040; 93005; 93306; G0378; J0456; J0696; J1170; J1650; J1885; J1940; J2270; J2405; J2543; J3370; Q9967; A9575; J2060; J7030; J7050